=== PATIENT | male | born 1960 | race Caucasian/White ===

== ENCOUNTER → 2023-05-30 | Day surgery (SDC) | payer MEDICAID ==
[~2023-05-30] VITALS: Ht 167.6 cm; Wt 64.0 kg
[~2023-05-30] MED LIST: AMLO10TA80 PO; BALANCED SALT IRRIG SOLN COMB1 500ML OP NR; CYCLOPENTOLATE HCL 1% OPHTH DROPS 2ML LEFTEYE ONE; DAPA5TAB PO; FENTANYL CITRATE/PF 50MCG/ML 2ML VIAL ONE; HYALURONATE SODIUM 10 MG/ML 0.55ML SYRINGE IO ONE; HYDR-4134 PO; HYDR-459 PO; LOSA25TA26 PO; METF-873 PO; MIDAZOLAM HCL 2 MG/2 ML VIAL ONE; PENT400T16 PO; PHENYLEPHRINE HCL 10% OPHTH DROPS 5ML LEFTEYE ONE; SODIUM CHLORIDE 0.9% 1,000 ML IV SCH; TROPICAMIDE 1% OPHTH DROPS 15ML LEFTEYE SCH; TRYPAN BLUE 0.5 ML DISP.SYRIN IO ONE
== END | disposition home or self-care (01) ==
LOC: OR 07:09
PROVIDERS: ATTEND Ophthalmology
DX: E11.36 Type 2 diabetes mellitus with diabetic cataract (principal); H25.89 Other age-related cataract; H21.502 Unspecified adhesions of iris, left eye; I10 Essential (primary) hypertension; I25.10 Atherosclerotic heart disease of native coronary artery without angina pectoris; Z95.0 Presence of cardiac pacemaker; Z79.84 Long term (current) use of oral hypoglycemic drugs; Z79.899 Other long term (current) drug therapy; Z98.890 Other specified postprocedural states
CPT/HCPCS: 82962; 66982; Q9957; J3010; J2250; J3490; V2632